=== PATIENT | male | born 1935 | race Caucasian/White ===

== ENCOUNTER 2018-06-01 05:26 | Day surgery (SDC) | payer OTHER, MEDICARE ==
[~2018-06-01] VITALS: Ht 172.7 cm; Wt 97.5 kg
[~2018-06-01 05:26] MED LIST: AVODART0.5 MG PO; COUMADIN2.5 MG PO; COZAAR25 MG PO; IRON325 M1 PO; LIPITOR40 MG PO; MULTIPLE VITAM1 EACH PO; PRESERVISION A1 EAC2 PO
[2018-06-01 06:04] VITALS: BP 130/60
[2018-06-01 06:19] LABS: CHLORIDE 106 mEq/L (99-109); POTASSIUM 4.8 mEq/L (3.7-5.4); SODIUM 139 mEq/L (136-147)
[2018-06-01 06:20] LABS: GLUCOSE 102 mg/dL (70-99)
[2018-06-01 06:24] LABS: CREATININE 0.8 mg/dL (0.6-1.3); GFR ESTIMATE (CALCULATED) > 59 mL/min/ (58.99-99999)
[2018-06-01 06:25] LABS: UREA NITROGEN (BUN) 16 mg/dL (9-23)
[2018-06-01 06:31] LABS: PTT 32.8 SEC (25-37)
[2018-06-01 06:32] LABS: INTER. NORMALIZED RATIO 1.8
[2018-06-01 09:22] VITALS: BP 134/62
[2018-06-01 10:22] VITALS: BP 130/59
== END 2018-06-01 10:40 | disposition home or self-care (01) ==
LOC: SDC 05:26
PROVIDERS: Urology
DX: N21.0 Calculus in bladder (principal); N35.9 Urethral stricture, unspecified; N40.1 Benign prostatic hyperplasia with lower urinary tract symptoms; R35.0 Frequency of micturition; R35.1 Nocturia; I48.0 Paroxysmal atrial fibrillation; I10 Essential (primary) hypertension; E78.5 Hyperlipidemia, unspecified; I38 Endocarditis, valve unspecified; Z79.01 Long term (current) use of anticoagulants; Z88.2 Allergy status to sulfonamides; Z88.8 Allergy status to other drugs, medicaments and biological substances; Z95.5 Presence of coronary angioplasty implant and graft; I25.10 Atherosclerotic heart disease of native coronary artery without angina pectoris; Z95.0 Presence of cardiac pacemaker
CPT/HCPCS: 80048; 82365 90; 85610; 85730; C1769; J0330; J1100; J1580; J2405; J3010